=== PATIENT | male | born 1975 | race Caucasian/White ===

== ENCOUNTER 2018-09-27 20:13 | Emergency (ER) | payer BC ==
--- NOTE | 2018-09-27 22:20 | EDM.PDOC ---
ED HPI GENERAL MEDICAL PROBLEM - General Chief Complaint: Syncope Stated Complaint: PASSED OUT WHILE LAUGHING HIT HEAD Time Seen by Provider: 09/27/18 20:25 Source of Information: Reports: Patient, RN Notes Reviewed - History of Present Illness INITIAL COMMENTS - FREE TEXT/NARRATIVE: 43 year old male that had syncopal event at home not long [employer]. He was playing a game with family, was laughing extremely hard about "something funny he or someone else said" and became lighthead, dizzy, passed out for less than one minute. Now feels completely back to normal. May have hit head but no head, nausea or vomiting. 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 Denies: Diaphoresis HEENT: Denies: Throat Pain Respiratory: Denies: Shortness of Breath Cardiovascular: Denies: Chest Pain GI/Abdominal: Denies: Abdominal Pain, Nausea, Vomiting Musculoskeletal: Denies: Neck Pain, Shoulder Pain, Back Pain Skin: Reports: No Symptoms Neurological: Reports: Dizziness. Denies: Headache, Numbness, Tingling, Trouble Speaking, Weakness - Physical Exam Exam: See Below General Appearance: Alert, No Apparent Distress Eye Exam: Bilateral Eye: PERRL Throat/Mouth: Normal Inspection, Normal Oropharynx Head Exam: Atraumatic Neck: Normal Inspection, Supple, Non-Tender Respiratory/Chest: No Respiratory Distress, Lungs Clear, Normal Breath Sounds Cardiovascular: Regular Rate, Rhythm GI/Abdominal: Soft, Non-Tender Neuro Exam (Abbreviated): Alert, Oriented, No Motor/Sensory Deficits Back Exam: No: Vertebral Tenderness Extremities: Normal Inspection Skin Exam: Warm, Dry, Normal Color EKG INTERPRETATION EKG Date: 09/27/18 Rhythm: NSR [place]: Normal P-Wave: Present QRS: Normal ST-T: Normal Course - Vital Signs Last Recorded V/S: Last Vital Signs Temp 97.2 F 09/27/18 20:24 Pulse 83 09/27/18 20:24 Resp 21 H 09/27/18 20:24 BP 144/97 H 09/27/18 20:24 Pulse Ox 99 09/27/18 20:24 - Orders/Labs/Meds Orders: Active Orders 24 hr Category Date Time Status EKG 12 Lead [EKG Documentation Completion] [RC] STAT Care 09/27/18 20:44 Active Labs: Laboratory Tests 09/27/18 09/27/18 Range/Units 20:52 20:52 WBC 7.92 (4.23-9.07) K/mm3 RBC 5.37 (4.63-6.08) M/mm3 Hgb 16.0 (13.7-17.5) gm/L Hct 46.8 (40.1-51.0) % MCV 87.2 (79.0-92.2) fl MCH 29.8 (25.7-32.2) pg MCHC 34.2 (32.2-35.5) g/dl RDW Std Deviation 41.2 (35.1-43.9) fL Plt Count 261 (163-337) K/mm3 MPV 10.2 (9.4-12.3) fl Neut % (Auto) 49.5 (34.0-67.9) % Lymph % (Auto) 38.9 (21.8-53.1) % [place] % (Auto) 9.3 (5.3-12.2) % Eos % (Auto) 1.8 (0.8-7.0) Baso % (Auto) 0.4 (0.1-1.2) % Neut # (Auto) 3.92 (1.78-5.38) K/mm3 Lymph # (Auto) 3.08 (1.32-3.57) K/mm3 [place] # (Auto) 0.74 (0.30-0.82) K/mm3 Eos # (Auto) 0.14 (0.04-0.54) K/mm3 Baso # (Auto) 0.03 (0.01-0.08) K/mm3 Sodium 139 (136-145) mEq/L Potassium 4.2 (3.5-5.1) mEq/L Chloride 102 (98-107) mEq/L Carbon Dioxide 31 (21-32) mEq/L Anion Gap 10.2 (5-15) BUN 13 (7-18) mg/dL Creatinine 1.3 (0.7-1.3) mg/dL Est Cr Clr Drug Dosing 74.02 mL/min Estimated GFR (MDRD) > 60 (>60) mL/min BUN/Creatinine Ratio 10.0 L (14-18) Glucose 121 H (74-106) mg/dL Calcium 8.9 (8.5-10.1) mg/dL Total Bilirubin 0.4 (0.2-1.0) mg/dL AST 12 L (15-37) U/L ALT 29 (16-63) U/L Alkaline Phosphatase 84 (46-116) U/L Total Protein 7.6 (6.4-8.2) g/dl Albumin 3.9 (3.4-5.0) g/dl Globulin 3.7 gm/dL Albumin/Globulin Ratio 1.1 (1-2) - Re-Assessments/Exams Free Text/Narrative Re-Assessment/Exam: 09/28/18 01:00 labs did come back normal, EKG normal, resting comfortably while in the ED. No ectopy. This would appear to be similar mechanism to cough syncope. Discharge instr. as documented. Departure - Departure Time of Disposition: 22:18 Disposition: Home, Self-Care 01 Condition: Fair Clinical Impression: Syncope Qualifiers: Syncope type: unspecified Qualified Code(s): R55 - Syncope and collapse - Discharge Information Instructions: Syncope Referrals: PCP,None [Primary Care Provider] - Forms: ED Department Discharge Additional Instructions: If at any time you start feeling lightheaded or dizzy get your head down, best to lie down with feet up if possible. Follow up with your clinic provider if any further episodes of dizziness. Return to ED if symptoms worsening in any way. - My Orders Last 24 Hours: My Active Orders 09/27/18 20:44 EKG 12 Lead [EKG Documentation Completion] [RC] STAT - Assessment/Plan Last 24 Hours: My Active Orders 09/27/18 20:44 EKG 12 Lead [EKG Documentation Completion] [RC] STAT
== END 2018-09-27 22:23 | disposition home or self-care (01) ==
LOC: JD.ED 20:13
DX: R55 Syncope and collapse (principal)
CPT/HCPCS: 36415; 80053; 85025; 93005; 93010; 99283; 99284-25